=== PATIENT | female | born 1965 | race Caucasian/White ===

== ENCOUNTER 2022-09-09 10:37 | Emergency (ER) | payer OTHER, SELFPAY ==
--- NOTE | ~2022-09-09 | XR_ITS ---
XR knee LT min 4V 09/09/2022 11:09 Indication: Left knee pain Procedure: 4 views left knee Comparison: 4 views left knee Findings: There is mild tricompartment osteoarthritis. No acute fracture, subluxation or dislocation. No significant joint effusion. There is corticated curvilinear ossific density along the lateral fem oral condyle on the oblique view, likely related to remote injury. Impression: 1: No acute fracture. Reviewed, dictated and finalized at location L. Impression: 1: No acute fracture.
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
[2022-09-09 10:50] VITALS: BP 119/67; PULSE 83; RESP 18; TEMP 36.4; O2SAT 99
== END 2022-09-09 11:32 | disposition home or self-care (01) ==
PROVIDERS: Emergency Provider Nurse Practitioner Family
DX: M25.562 Pain in left knee (principal); M19.90 Unspecified osteoarthritis, unspecified site; E03.9 Hypothyroidism, unspecified
CPT/HCPCS: 73564; 99203; G0463

== ENCOUNTER → 2022-09-19 09:26 | Outpatient (CLI) | payer OTHER, SELFPAY ==
--- NOTE | ~2022-09-19 | MR_ITS ---
MRI of the left knee Clinical history: Pain Technique: Coronal proton density and proton density-weighted images, sagittal proton-density and T2 fat-sat images, and axial proton-density fat-saturated images were acquired. Findings: Anterior and posterior cruciate ligaments are intact. Medial collateral ligament and the la teral collateral ligament complex are intact. Popliteus tendon is intact. Medial and lateral menisci are intact, without evidence of tear. There is patchy moderate chondromalacia along the medial femoral condyle. There is minimal chondromal acia along the lateral femoral condyle. There is moderate to high-grade chondromalacia the femoral tr ochlea, especially along the central aspect to the medial facet. There is extensive high-grade chondr omalacia patella. Small tricompartmental osteophytes are present. Extensor mechanism is intact. Small joint effusion is present, with moderate, multiseptated Vee's c yst. There is a 5 mm loose body within the Vee's cyst, best seen on coronal image 17). Impression: Moderate tricompartmental degenerative change, as detailed above. Moderate, multiseptated Vee's cyst with 5 mm loose body within the Vee's cyst, as detailed above. Reviewed, dictated and finalized at location . Impression: Moderate tricompartmental degenerative change, as detailed above. Moderate, multiseptated Vee's cyst with 5 mm loose body within the Vee's cy st, as detailed above.
== END ==
PROVIDERS: PCP Orthopaedic Surgery; Visit Provider Orthopaedic Surgery
DX: M17.12 Unilateral primary osteoarthritis, left knee (principal); M71.22 Synovial cyst of popliteal space [Baker], left knee
CPT/HCPCS: 73721

== ENCOUNTER 2023-04-21 10:00 | Emergency (ER) | payer OTHER, SELFPAY ==
--- NOTE | ~2023-04-21 | XR_ITS ---
EXAMINATION: XR chest 2V 04/21/2023 11:12 INDICATION: Cough and congestion PROCEDURE: 2 view chest COMPARISON: No prior studies for comparison. FINDINGS: The lungs are clear. The cardiomediastinal silhouette is within normal limits. There are no pleural effusions. There is no pneumothorax suspected. IMPRESSION: 1: NO ACUTE CARDIOPULMONARY DISEASE. Reviewed, dictated and finalized at location L. ON DIOXIDE OPERATOR
[2023-04-21 10:28] VITALS: BP 121/76; PULSE 78; RESP 16; TEMP 36.6; O2SAT 100
--- NOTE | 2023-04-21 10:37 | ED.URI ---
HPI - URI/Sore Throat General Chief Complaint: Upper Respiratory Infection Stated Complaint: Chest Congestion and Cough Time Seen by Provider: 04/21/23 10:40 Source: patient Mode of arrival: ambulatory Limitations: no limitations History of Present Illness HPI Narrative: Sandi is a 57-year-old female patient presenting to clinic today with complaints of cough and congestion x3 days. She does report having some mild shortness of breath. Is bringing up some green phlegm. Denies any known fever or chills. Did at home COVID test and this was negative. MD elicited complaint: cough, nasal congestion and other (Shortness of breath) Related Data Allergies Allergy/AdvReac Type Severity Reaction Status Date / Time No Known Allergies Allergy Verified 04/21/23 10:34 Review of Systems Review of Systems: Pertinent positives per HPI. Patient denies any fever, chills, rash, headache, visual changes, dizziness, cough, shortness of breath, chest pain, palpitations, nausea, vomiting, diarrhea, constipation, abdominal pain, or any urinary issues. [facility] Past Medical History Medical History Arthritis Arthritis of left knee Encounter to establish care Hyperlipidemia Hypothyroid Morbid obesity with BMI of 40.0-44.9, adult Prediabetes Surgical History Surgical History H/O arthroscopy of knee right knee- 2014 H/O tubal ligation History of elbow surgery left elbow- 2008 Family History Family History Sibling Asthma Hypertension Depression Mother Asthma Depression Heart disease Thyroid disease Grandparent Cancer Diabetes mellitus Cerebrovascular accident Other Cancer Diabetes mellitus Hypertension Father Diabetes mellitus Unknown Hypertension Depression Alcoholism Grandparent Heart disease Cerebrovascular accident Social History Social History Smoking status: Never smoker Alcohol intake: current Substance use type: does not use Lack of Transportation: No Lack of Food: Never True Current Housing: I Have Housing Concerned About Future Housing: No Difficulty Paying Gas/Electric Bills: No Difficulty Paying for Meds: No Currently Unemployed: No Education: Associate Degree Difficulty w/ Childcare or Family Care: No Living arrangements: alone Occupation/Education: occupation 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 There is no relevant family history pertinent to the patient complaint. Exam Narrative: General: Well-developed, well nourished, in no apparent distress Head: Normocephalic, atraumatic Eyes: Pupils equally round and reactive to light bilaterally, EOM intact, sclera and conjunctive clear, no discharge, lids normal Ears: TMs intact and clear, ear canals clear, no drainage, grossly hearing normal. Nose: Nares patent, clear nasal discharge, no inflammation, no sinus tenderness. Mouth: Oral pharynx without lesions or masses, good dentition, MMM. Neck: Supple, trachea midline, no enlargement of anterior or posterior cervical nodes, no thyroid masses or goiter palpable. Cardio: Regular rate and rhythm, s1 and s2 normal, no murmur appreciated. Resp: Faint expiratory wheezing, no rhonchi, rales, or rubs Course Course Emergency Course: Portions of this record may have been created with voice recognition software. Level of Care: Express Care Visit Vital Signs Vital signs: Vital Signs Temperature 36.6 C 04/21/23 10:28 Pulse Rate 78 04/21/23 10:28 Respiratory Rate 16 04/21/23 10:28 Blood Pressure 121/76 04/21/23 10:28 Puls
== END 2023-04-21 11:39 | disposition home or self-care (01) ==
PROVIDERS: Emergency Provider Nurse Practitioner Family; PCP Nurse Practitioner Family
DX: J40 Bronchitis, not specified as acute or chronic (principal); R09.82 Postnasal drip; J06.9 Acute upper respiratory infection, unspecified; M17.12 Unilateral primary osteoarthritis, left knee; E78.5 Hyperlipidemia, unspecified; E03.9 Hypothyroidism, unspecified; R73.03 Prediabetes; E66.01 Morbid (severe) obesity due to excess calories; Z68.41 Body mass index [BMI] 40.0-44.9, adult
CPT/HCPCS: 71046; 99213; G0463

== ENCOUNTER 2023-06-27 08:57 | Emergency (ER) | payer OTHER, SELFPAY ==
--- NOTE | 2023-06-27 09:21 | ED.EAR ---
HPI - Ear Problem General Chief complaint: Ear Stated complaint: lt ear pain Time Seen by Provider: 06/27/23 09:20 Source: patient Mode of arrival: ambulatory Limitations: no limitations History of Present Illness HPI Narrative: Sandi is a 57-year-old female patient presenting to the clinic today with complaints of bilateral ear pain that started this morning. She reports she is having some ringing in her ear on the left ear. She denies any fever chills. History of recurrent infections. Denies any runny nose, fever, or congestion Related Data Allergies Allergy/AdvReac Type Severity Reaction Status Date / Time No Known Allergies Allergy Verified 06/27/23 09:29 Review of Systems Review of Systems: Pertinent positives per HPI. Patient denies any fever, chills, rash, headache, visual changes, dizziness, cough, runny nose, sore throat, shortness of breath, chest pain, palpitations, nausea, vomiting, diarrhea, constipation, abdominal pain, or any urinary issues. [facility] Past Medical History Medical History Anxiety Arthritis Arthritis of left knee Depression Encounter to establish care Hyperlipidemia Hypothyroid Morbid obesity with BMI of 40.0-44.9, adult Prediabetes Vaginal discharge Surgical History Surgical History H/O arthroscopy of knee right knee- 2014 H/O tubal ligation History of elbow surgery left elbow- 2008 Family History Family History Sibling Asthma Hypertension Depression Mother Asthma Depression Heart disease Thyroid disease Grandparent Cancer Diabetes mellitus Cerebrovascular accident Other Cancer Diabetes mellitus Hypertension Father Diabetes mellitus Unknown Hypertension Depression Alcoholism Grandparent Heart disease Cerebrovascular accident Social History Social History Smoking status: Never smoker Alcohol intake: current Substance use type: does not use Lack of Transportation: No Lack of Food: Never True Current Housing: I Have Housing Concerned About Future Housing: No Difficulty Paying Gas/Electric Bills: No Difficulty Paying for Meds: No Currently Unemployed: No Education: Associate Degree Difficulty w/ Childcare or Family Care: No Living arrangements: alone Occupation/Education: occupation 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 There is no relevant family history pertinent to the patient complaint. Exam Narrative: General: Well-developed, obese, in no apparent distress Head: Normocephalic, atraumatic Eyes: Pupils equally round and reactive to light bilaterally, EOM intact, sclera and conjunctive clear, no discharge, lids normal Ears: Right tMs intact, bulging, red with fluid noted behind the TM, unable to visualize the left TM due to left ear canal swelling, no drainage, grossly hearing normal. Nose: Nares patent, no discharge, no inflammation, no sinus tenderness. Mouth: Oropharynx without lesions or masses, good dentition, MMM. Neck: Supple, trachea midline, no enlargement of anterior or posterior cervical nodes, no thyroid masses or goiter palpable. Cardio: Regular rate and rhythm, s1 and s2 normal, no murmur appreciated. Resp: Clear to auscultation bilaterally anteriorly and posteriorly, no rhonchi, rales, wheezing or rubs Course Course Emergency Course: Portions of this record may have been created with voice recognition software. Level of Care: Express Care Visit Vital Signs Vital signs: Vital signs reviewed Medical Decision Making MDM Narrative Medical decision making narr
[2023-06-27 09:28] VITALS: BP 131/61; PULSE 80; RESP 18; TEMP 36.4; O2SAT 100
== END 2023-06-27 10:00 | disposition home or self-care (01) ==
PROVIDERS: Emergency Provider Nurse Practitioner Family; PCP Nurse Practitioner Family
DX: H66.91 Otitis media, unspecified, right ear (principal); H60.312 Diffuse otitis externa, left ear; M17.12 Unilateral primary osteoarthritis, left knee; E78.5 Hyperlipidemia, unspecified; E03.9 Hypothyroidism, unspecified; E66.01 Morbid (severe) obesity due to excess calories; Z68.41 Body mass index [BMI] 40.0-44.9, adult; R73.03 Prediabetes
CPT/HCPCS: 99213; G0463

== ENCOUNTER 2025-03-02 08:32 | Emergency (ER) | payer OTHER, SELFPAY ==
--- NOTE | ~2025-03-02 | XR_ITS ---
EXAMINATION: XR chest 2V, 03/02/2025 9:08 LASER TECHNICIAN HISTORY: prod.cough, hurts to take deep breath x 2 weeks. sob COMPARISON: No comparisons available. Technique: 2 views obtained. Findings: The lungs are clear, no effusion. No pneumothorax. Heart is normal size. Mediastinal and hilar contours are within normal limits. Bony thorax no acute abnormality. Impression: No acute cardiopulmonary abnormality. Reviewed, dictated and finalized at location P. R TECHNICIAN Impression: No acute cardiopulmonary abnormality.
--- NOTE | 2025-03-02 08:38 | ED_ITS ---
HPI - URI/Sore Throat General Chief Complaint: Upper Respiratory Infection Stated Complaint: COUGH/CHEST/HURTS TO BREATHE/HEADACHE Time Seen by Provider: 03/02/25 08:45 Source: patient Mode of arrival: ambulatory Limitations: no limitations History of Present Illness HPI Narrative: Sandi is a 59-year-old female patient presenting to the clinic today with complaints cough, chest congestion, hurts to breathe, and headache x2 weeks. She reports she is coughing up green phlegm. Has been taking Mucinex, emergency C, and Flonase. States she did have a sore throat initially however that has improved. Denies any fevers, chills, or body aches. Rates pain currently 5/10. Related Data Allergies Allergy/AdvReac Type Severity Reaction Status Date / Time azithromycin (From Zithromax) Allergy Mild Swelling Verified 03/02/25 08:43 Review of Systems Review of Systems: Pertinent positives per HPI. Patient denies any fever, chills, rash, visual changes, dizziness, palpitations, nausea, vomiting, diarrhea, constipation, abdominal pain, or any urinary issues. [facility] Past Medical History Medical History Eustachian tube dysfunction Otitis media of left ear Vertigo Edema, lower extremity Palpitations BMI 45.0-49.9, adult Depression Anxiety Vaginal discharge Morbid obesity with BMI of 40.0-44.9, adult Encounter to establish care Hyperlipidemia Prediabetes Arthritis of left knee Arthritis Hypothyroid Surgical History Surgical History History of elbow surgery left elbow- 2008 H/O arthroscopy of knee right knee- 2014 H/O tubal ligation Family History Family History Sibling Asthma Hypertension Depression Mother Asthma Depression Heart disease Thyroid disease Grandparent Cancer Diabetes mellitus Cerebrovascular accident Other Cancer Diabetes mellitus Hypertension Father Diabetes mellitus Unknown Hypertension Depression Alcoholism Grandparent Heart disease Cerebrovascular accident Social History Social History Alcohol intake: current Substance use type: does not use Lack of Transportation: No Lack of Food: Never True Current Housing: I Have Housing Concerned About Future Housing: No Difficulty Paying Gas/Electric Bills: No Difficulty Paying for Meds: No Currently Unemployed: No Education: Associate Degree Difficulty w/ Childcare or Family Care: No Living arrangements: alone Occupation/Education: occupation 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 There is no relevant family history pertinent to the patient complaint. Exam Narrative: General: Well-developed, obese, in no apparent distress Head: Normocephalic, atraumatic Eyes: Pupils equally round and reactive to light bilaterally, EOM intact, sclera and conjunctive clear, no discharge, lids normal Ears: TMs intact and clear, ear canals clear, no drainage, grossly hearing no rmal. Nose: Nares patent, green nasal discharge, no inflammation, no sinus tenderness. Mouth: Oral pharynx red without lesions or masses, good dentition, MMM. PND Neck: Supple, trachea midline, no enlargement of anterior or posterior cervical nodes, no thyroid masses or goiter palpable. Cardio: Regular rate and rhythm, s1 and s2 normal, no murmur appreciated. Resp: Faint rhonci in the lower bases, no rales, wheezing or rubs Course Course Emergency Course: Portions of this record may have been created with voice recognition software. Level of Care: Express Care Visit Vital Signs Vital signs: Vital Signs Temperature 36.6 C 03/02/25 08:42 Pulse Rate 83 03/02/25 08:42 Respiratory Rate 16 03/02/25 08:42 Blood Pressure 125/86 03/02/25 08:42 Pulse Oximetry 99 03/02/25 08:42 Temperature 36.6 C 03/02/25 08:42 Pulse Rate 83 03/02/25 08:42 Respiratory Rate 16 03/02/25 08:42 Blood Pressure 125/86 03/02/25 08:42 Pulse Oximetry 99 03/02/25 08:42 Vital signs reviewed MDM - URI/Sore Throat MDM Narrative Medical decision making narrative: At the time of visit patient is resting comfortably on the exam table. Patient appears to be nontoxic. Complaints cough, chest congestion, hurts to breathe, and headache x2 weeks. She reports she is coughing up green phlegm. Has been taking Mucinex, emergency C, and Flonase. States she did have a sore throat initially however that has improved. Denies any fevers, chills, or body aches. Rates pain currently 5/10. On exam patient has bilat clear TMs intact, green nasal drainage, oral pharynx red with postnasal drip,maxillary and frontal sinus tenderness, heart rates regular rate and rhythm, lung sounds have faint rhonchi in the bases. Diagnostics: Chest x-ray was performed and is negative for any acute cardiopulmonary process. Plan: I suspect patient has sinusitis / bronchitis. Prescription for Augmentin, prednisone, and albuterol inhaler was sent to the pharmacy. Chest x- ray looks clear- awaiting radiologist's review. Will contact patient with results. Supportive measures were discussed with the patient and they voiced understanding discharge instructions and agrees to treatment plan. Return precautions reviewed Differential Diagnosis Differential diagnosis: Likely upper respiratory infection, otitis media, sinusitis ( pneumonia), viral infection, bronchitis, influenza, pharyngitis and other (COVID) Imaging Data Attestation: I personally reviewed and interpreted this imaging study as follows: My impression: Negative for any acute cardiopulmonary process. Discharge Plan Discharge Clinical Impression: Acute bacterial rhinosinusitis, Bronchitis Patient Disposition: Home Condition: Stable Instructions: Antibiotic Form, Sinusitis (ED), Acute Bronchitis (ED) Additional Instructions: Chest x-rays negative for any acute cardiopulmonary process. Awaiting radiologist's review. Take prescription medications only as prescribed- Augmentin, prednisone, and albuterol inhaler. Increase fluids and stay well hydrated May take Tylenol or motrin as directed on bottle for pain/fever May use Flonase 1 spray in each nare daily May take OTC antihistamines such as Zyrtec or Claritin daily as directed on bottle May apply Vicks vapor rub to chest to open sinuses Sinus rinses for congestion Cepacol spray, cough drops, throat lozenges, warm tea with honey/lemon, gargle salt water to soothe throat BRAT diet for diarrhea Clear liquids x 24 hours then advance as tolerated for nausea/vomiting Go to the ED if you develop a worsening in your condition- high fever not controlled by Tylenol or Motrin, dehydration, weakness, lethargy, shortness of breath, or chest pain. Follow up with your PCP in 3-5 days if symptoms persist. Patient Language: Bengali Prescriptions: New prednisone 20 mg tablet 40 mg PO DAILY 5 Days Qty: 10 0RF albuterol sulfate 90 mcg/actuation HFA aerosol inhaler 2 puff inhalation Q4-6H PRN (Reason: shortness of breath or wheezing) 30 Days Qty: 8.5 0RF amoxicillin-pot clavulanate 875-125 mg tablet 1 tablet PO Q12H 7 Days Qty: 14 0RF No Action levothyroxine [Synthroid] 100 mcg tablet 100 mcg PO DAILY Qty: 90 3RF metformin 500 mg tablet extended release 24 hr 500 mg PO BID Qty: 180 3RF bupropion HCl [Wellbutrin XL] 150 mg tablet extended release 24 hr 150 mg PO QAM Qty: 90 3RF mometasone 50 mcg/actuation spray,non-aerosol 2 spray intranasal DAILY Qty: 17 5RF Rx Instructions: administer into each nostril sertraline 50 mg tablet 50 mg PO DAILY Qty: 30 5RF Follow-up/Referrals: Nadeen Moulton APRN [Primary Care Provider, Family Practice] Time of Disposition: 09:14 Quality NIHSS Nursing Documentation ED NIHSS nursing documentation: reviewed/agree
[2025-03-02 08:42] VITALS: BP 125/86; PULSE 83; RESP 16; TEMP 36.6; O2SAT 99
== END 2025-03-02 09:22 | disposition home or self-care (01) ==
PROVIDERS: Emergency Provider Nurse Practitioner Family; PCP Nurse Practitioner Family
DX: J01.90 Acute sinusitis, unspecified (principal); B96.89 Other specified bacterial agents as the cause of diseases classified elsewhere; J40 Bronchitis, not specified as acute or chronic; E03.9 Hypothyroidism, unspecified; E78.5 Hyperlipidemia, unspecified
CPT/HCPCS: 71046; 99213; G0463

== ENCOUNTER 2025-04-26 08:36 | Emergency (ER) | payer OTHER, SELFPAY ==
--- NOTE | ~2025-04-26 | XR_ITS ---
XR knee RT 3V 04/26/2025 09:39 Indication: Knee pain Procedure: 3 views right knee Comparison: No prior studies for comparison. Findings: There is moderate osteoarthritis of the right knee. No fracture, subluxation or dislocation. No significant joint effusion. Impression: 1: Moderate tricompartment osteoarthritis of the right knee. Reviewed, dictated and finalized at location O. SSRS DEVELOPER Impression: 1: Moderate tricompartment osteoarthritis of the right knee.
[2025-04-26 09:00] VITALS: BP 130/85; PULSE 81; RESP 16; TEMP 36.9; O2SAT 99
--- NOTE | 2025-04-26 09:19 | ED_ITS ---
HPI - Extremity Injury (Lower) General Chief Complaint: Extremity Injury, Lower Stated Complaint: sinus issues, twisted R knee Time Seen by Provider: 04/26/25 09:19 Source: patient Mode of arrival: ambulatory Limitations: no limitations History of Present Illness HPI Narrative: 59 yo F presents with R knee pain for 1 wk. Twisted R knee a wk ago then twisted it again. Today walking out to crush and states right knee went out from under her and patient fell onto left knee. No pain to left knee. Was able to get up on her own. Ambulatory with limp. All systems reviewed and negative except as noted above. Related Data Allergies Allergy/AdvReac Type Severity Reaction Status Date / Time azithromycin (From Zithromax) Allergy Mild Swelling Verified 04/26/25 08:56 [facility] Past Medical History Medical History Eustachian tube dysfunction Otitis media of left ear Vertigo Edema, lower extremity Palpitations BMI 45.0-49.9, adult Depression Anxiety Vaginal discharge Morbid obesity with BMI of 40.0-44.9, adult Encounter to establish care Hyperlipidemia Prediabetes Arthritis of left knee Arthritis Hypothyroid Surgical History Surgical History History of elbow surgery left elbow- 2008 H/O arthroscopy of knee right knee- 2014 H/O tubal ligation Family History Family History Sibling Asthma Hypertension Depression Mother Asthma Depression Heart disease Thyroid disease Grandparent Cancer Diabetes mellitus Cerebrovascular accident Other Cancer Diabetes mellitus Hypertension Father Diabetes mellitus Unknown Hypertension Depression Alcoholism Grandparent Heart disease Cerebrovascular accident Social History Social History Smoking status: Never smoker Alcohol intake: current Substance use type: does not use Lack of Transportation: No Lack of Food: Never True Current Housing: I Have Housing Concerned About Future Housing: No Difficulty Paying Gas/Electric Bills: No Difficulty Paying for Meds: No Currently Unemployed: No Education: Associate Degree Difficulty w/ Childcare or Family Care: No Living arrangements: alone Occupation/Education: occupation 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 There is no relevant family history pertinent to the presenting complaint. Exam Narrative: GENERAL: This is a well-nourished, well-developed patient, in no apparent distress. HEAD: normocephalic, atraumatic. EYES: PERRL. Sclera clear/white. Vision is grossly intact. EARS: External ears normal NOSE: External nose normal NECK: Neck supple, non-tender without lymphadenopathy, masses or thyromegaly. CARDIOVASCULAR: Regular rate and rhythm without murmurs, gallops, or rubs. RESPIRATORY: Clear to auscultation. Breath sounds equal bilaterally. No wheezes, rales, or rhonchi. SKIN: warm, Dry, intact with no suspicious lesions or rash, good texture and turgor. NEURO: awake, alert, and oriented to person, place and time. There were no obvious focal neurologic abnormalities. EXTREMITIES: Tenderness to lateral aspect right knee and posterior. Negative anterior and posterior drawer testing. No instability noted. Swelling difficult to evaluate due to patient's body habitus. Course Course Level of Care: Express Care Visit Vital Signs Vital signs: Vital Signs Temperature 36.9 C 04/26/25 09:00 Pulse Rate 81 04/26/25 09:00 Respiratory Rate 16 04/26/25 09:00 Blood Pressure 130/85 04/26/25 09:00 Pulse Oximetry 99 04/26/25 09:00 Temperature 36.9 C 04/26/25 09:00 Pulse Rate 81 04/26/25 09:00 Respiratory Rate 16 04/26/25 09:00 Blood Pressure 130/85 04/26/25 09:00 Pulse Oximetry 99 04/26/25 09:00 reviewed [facility]DM [facility] Narrative Medical decision making narrative: Osteoarthritis noted to right knee. Negative for fracture and effusion. Discussed x-ray results with patient. Recommend follow-up with primary care physician or Orthopedics if not improving. Differential Diagnosis Differential Diagnosis: Differential diagnostic considerations for lower extremity injury include ankle sprain/strain, acute internal derangement of knee, fracture of femur, fracture of hip, puncture wound of foot, fracture of toe, fracture of ankle, tendon rupture (achilles/patellar/quadriceps). Imaging Data Radiologist's impression: ITS Impressions Knee X-Ray 04/26/25 09:40 Impression: 1: Moderate tricompartment osteoarthritis of the right knee. Discharge Plan Discharge Clinical Impression: Strain of right knee Qualifiers: Encounter type: initial encounter Qualified Code(s): S86.911A - Strain of unspecified muscle(s) and tendon(s) at lower leg level, right leg, initial encounter Patient Disposition: Home Condition: Stable Instructions: Knee Pain (ED) Additional Instructions: The x-ray of your right knee showed moderate osteoarthritis. take ibuprofen or Tylenol every 6 hours as needed for pain. Elevate when at rest. Follow-up with your bioinformatics specialist at next available appointment for further evaluation of your pain. Patient Language: Mongolian Prescriptions: No Action albuterol sulfate 90 mcg/actuation HFA aerosol inhaler 2 puff inhalation Q4-6H PRN (Reason: shortness of breath or wheezing) 30 Days Qty: 8.5 0RF levothyroxine [Synthroid] 100 mcg tablet 100 mcg PO DAILY Qty: 90 3RF metformin 500 mg tablet extended release 24 hr 500 mg PO BID Qty: 180 3RF bupropion HCl [Wellbutrin XL] 150 mg tablet extended release 24 hr 150 mg PO QAM Qty: 90 3RF sertraline 50 mg tablet 50 mg PO DAILY Qty: 30 5RF Follow-up/Referrals: Nadeen Moulton APRN [Primary Care Provider, Family Practice] Time of Disposition: 10:12
== END 2025-04-26 10:19 | disposition home or self-care (01) ==
PROVIDERS: Emergency Provider Nurse Practitioner Family; PCP Nurse Practitioner Family
DX: S86.911A Strain of unspecified muscle(s) and tendon(s) at lower leg level, right leg, initial encounter (principal); W19.XXXA Unspecified fall, initial encounter; E03.9 Hypothyroidism, unspecified; E78.5 Hyperlipidemia, unspecified; R73.03 Prediabetes; E66.01 Morbid (severe) obesity due to excess calories; Z68.42 Body mass index [BMI] 45.0-49.9, adult; F41.9 Anxiety disorder, unspecified; F32.A Depression, unspecified; M17.12 Unilateral primary osteoarthritis, left knee
CPT/HCPCS: 73562; 99213; G0463